=== PATIENT | female | born 1985 | race Caucasian/White ===

== ENCOUNTER 2018-12-01 12:56 | Emergency (ER) | payer MEDICAID ==
[~2018-12-01] VITALS: Ht 160 cm; Wt 89.0 kg
[~2018-12-01 12:56] MED LIST: GUAI600T45 PO
[2018-12-01 13:09] VITALS: BP 117/74
[2018-12-01] MEDS ORDERED: IBUP-1986 PO (13:39)
[2018-12-01] MEDS ORDERED: AMOX500C2 PO (13:39)
== END 2018-12-01 13:51 | disposition home or self-care (01) ==
LOC: ER 12:57
DX: K08.89 Other specified disorders of teeth and supporting structures (principal); R22.0 Localized swelling, mass and lump, head; F12.90 Cannabis use, unspecified, uncomplicated; Z86.69 Personal history of other diseases of the nervous system and sense organs; Z59.0 Homelessness; Z79.2 Long term (current) use of antibiotics; Z79.899 Other long term (current) drug therapy
CPT/HCPCS: 99283

== ENCOUNTER 2019-02-05 10:41 | Emergency (ER) | payer MEDICAID ==
[~2019-02-05] VITALS: Ht 160 cm; Wt 88.2 kg
[~2019-02-05 10:41] MED LIST changes: +IBUP-1986 PO
[2019-02-05 10:47] VITALS: BP 110/79
--- NOTE | 2019-02-05 12:06 | NUR ---
PATIENT REPORTS ABSCESS TO PERINEAL AREA THAT IS RECURRING. PAINFUL TO SIT AND WALK. NO ACTIVE DRAINAGE AT PRESENT.
[2019-02-05] MEDS ORDERED: LIDOcaine 1% w/EPI 1:200,000 injection 10mL vial IM ONE (13:15)
[2019-02-05] MEDS ORDERED: IBUP-1984 PO (13:32)
[2019-02-05] MEDS ORDERED: SULF1TAB49 PO (13:32)
== END 2019-02-05 14:22 | disposition home or self-care (01) ==
LOC: ER 10:42
DX: L02.31 Cutaneous abscess of buttock (principal); F12.90 Cannabis use, unspecified, uncomplicated; Z86.69 Personal history of other diseases of the nervous system and sense organs; Z59.0 Homelessness; Z98.51 Tubal ligation status; Z79.899 Other long term (current) drug therapy; Z88.0 Allergy status to penicillin
CPT/HCPCS: 10060; 99283

== ENCOUNTER 2020-08-12 08:27 | Emergency (ER) | payer MEDICAID ==
[~2020-08-12] VITALS: Ht 160 cm; Wt 100.0 kg
[2020-08-12 08:42] VITALS: BP 155/122
[2020-08-12] MEDS ORDERED: ketorolac trometh. 30mg/ml inj. IM ONE (10:00)
[2020-08-12] MEDS ORDERED: ondansetron 4mg rapidly disintigrating tab PO ONE (10:00)
[2020-08-12] MEDS ORDERED: sulfamethoxazole/trimethoprim DS (800/160mg) tablet PO ONE (10:00)
[2020-08-12] MEDS ORDERED: HYDROcodone/acetaminophen 5mg/325mg tablet PO ONE (10:00)
[2020-08-12] MEDS ORDERED: HYDR-3965 PO (10:06)
[2020-08-12] MEDS ORDERED: SULF1TAB49 PO (10:06)
[2020-08-12] MEDS ORDERED: ONDA4TAB6 PO (10:06)
[2020-08-12] MEDS ORDERED: MELO-100 PO (10:06)
== END 2020-08-12 10:33 | disposition home or self-care (01) ==
LOC: ER 08:27
DX: L02.31 Cutaneous abscess of buttock (principal); R30.0 Dysuria; R50.9 Fever, unspecified; F12.90 Cannabis use, unspecified, uncomplicated; Z86.69 Personal history of other diseases of the nervous system and sense organs; Z98.51 Tubal ligation status; Z59.0 Homelessness; Z88.0 Allergy status to penicillin; Z79.2 Long term (current) use of antibiotics; Z79.899 Other long term (current) drug therapy
CPT/HCPCS: 96372; 99284; J1885

== ENCOUNTER 2022-09-23 09:59 | Emergency (ER) | payer MEDICAID ==
[~2022-09-23] VITALS: Ht 160 cm; Wt 96.8 kg
[~2022-09-23 09:59] MED LIST changes: +MELO-100 PO; +ONDA4TAB6 PO
[2022-09-23] MEDS ORDERED: LIDOcaine 1% W/epiNEPHrine 1:100,000 20ml vial SQ ONE ×2 (10:25→11:00)
--- NOTE | 2022-09-23 10:48 | NUR ---
supplies at bedside. Dr. pk barriga. adminstered lidocaine.
--- NOTE | 2022-09-23 11:03 | NUR ---
DR. WESTFALL AT BEDSIDE.
[2022-09-23] MEDS ORDERED: SULF1TAB49 PO (11:29)
[2022-09-23] MEDS ORDERED: sulfamethoxazole/trimethoprim DS (800/160mg) tablet PO ONE (11:30)
[2022-09-23 11:38] VITALS: BP 107/55
== END 2022-09-23 11:50 | disposition home or self-care (01) ==
LOC: ER 09:59
DX: L02.31 Cutaneous abscess of buttock (principal); K61.0 Anal abscess; F12.90 Cannabis use, unspecified, uncomplicated; Z59.00 Homelessness unspecified; Z98.51 Tubal ligation status; Z88.0 Allergy status to penicillin; Z79.899 Other long term (current) drug therapy
CPT/HCPCS: 46050; 87070; 99284; A6407; J3490; J7030; 87077; 87186; A6258; A6449

== ENCOUNTER 2023-05-02 22:24 | Emergency (ER) | payer MEDICAID ==
[~2023-05-02] VITALS: Ht 160 cm; Wt 90.9 kg
[2023-05-02 22:28] VITALS: RESP 24
== END 2023-05-02 23:06 ==
LOC: ER 22:25
DX: M25.532 Pain in left wrist (principal); F10.129 Alcohol abuse with intoxication, unspecified; V98.8XXA Other specified transport accidents, initial encounter; Y93.89 Activity, other specified; Y92.89 Other specified places as the place of occurrence of the external cause; Y99.8 Other external cause status; Y90.9 Presence of alcohol in blood, level not specified
CPT/HCPCS: 99283